=== PATIENT | female | born 1985 | race Caucasian/White ===

== ENCOUNTER 2017-07-13 19:07 | Emergency (ER) | payer BC ==
[2017-07-13 19:22] VITALS: RESP 18; TEMP 99.4; O2SAT 100
[2017-07-13 20:15] VITALS: BP 156/75; PULSE 111
== END 2017-07-13 19:55 | disposition home or self-care (01) ==
LOC: ED 19:07
DX: O26.851 Spotting complicating pregnancy, first trimester (principal); Z3A.10 10 weeks gestation of pregnancy
CPT/HCPCS: 99283